=== PATIENT | female | born 1990 | race American Indian/Alaskan Native ===

== ENCOUNTER 2019-02-14 09:48 | Emergency (ER) | payer SELFPAY ==
[2019-02-14 10:29] VITALS: BP 114/63
[2019-02-14 11:38] LABS: Hematocrit 41.8 % (30.3-42.9); Mean Corpuscular HGB Conc 33 % (30-34); Mean Corpuscular Volume 93 fl (79-97); Platelet Count 376 K/mm3 (140-440); Red Blood Count 4.49 M/mm3 (3.65-5.03); Red Cell Distribution Width 14.8 % (13.2-15.2)
[2019-02-14 12:01] LABS: Alanine Aminotransferase 16 units/L (7-56); Albumin 4.4 g/dL (3.9-5); BUN/Creatinine Ratio 8; Blood Urea Nitrogen 9 mg/dL (7-17); Calcium 9.6 mg/dL (8.4-10.2); Hemolysis Index 3
[2019-02-14 13:26] LABS: HCG Qualitative,Urine Negative (Negative)
[2019-02-14 14:14] LABS: Band Neutrophils # (Manual) 1.2 K/mm3; Basophils % (Manual) 0 % (0.0-1.8); Eosinophils % (Manual) 0 % (0.0-4.3); Total Cells Counted 100
[2019-02-14 14:15] LABS: Platelet Estimate Consistent w Auto; RBC Morphology Normal
--- NOTE | 2019-02-14 14:18 | Ultrasound Report ---
ULTRASOUND PELVIS COMPLETE ULTRASOUND TRANSVAGINAL INDICATION / CLINICAL INFORMATION: Left lower quadrant pain, pelvic pain. TECHNIQUE: Transabdominal and Transvaginal. Duplex Color Doppler used: Yes. COMPARISON: None available FINDINGS: UTERUS: Present. - Appearance (if present): No significant abnormality. - Size in cm (if present): 7.4 x 3.6 x 3.5. - Endometrial Complex (if present): No significant abnormality.. Thickness in cm (if measured) = 1.1 - Mass lesions: None. - Additional findings: None. RIGHT ADNEXA: The right ovary measures 5.0 x 2.3 x 3.6 cm. No focal abnormality is detected. Normal c olor Doppler blood flow. LEFT ADNEXA: The left ovary measures 2.8 x 2.1 x 2.5 cm. A 1.7 cm left ovarian cyst is identified. Th ere is also a tubular serpiginous structure in the left adnexa with no internal flow suggestive of mi ld left hydrosalpinx. Thrombosed left ovarian vein could be considered. URINARY BLADDER: The bladder is empty but no obvious abnormality. FREE FLUID: Trace free fluid in the cul-de-sac. ADDITIONAL FINDINGS: None. IMPRESSION: Unremarkable uterus, endometrium and right ovary. 1.7 cm left ovarian cyst. There is also a tubular serpiginous structure in the left adnexa which prob ably represents mild right hydrosalpinx. Thrombosed pelvic vein could be considered. Please correlate with the clinical presentation of the patient. Trace free fluid in the cul-de-sac. Signer Name: Lawson Pop Jr, MD Signed: 02/14/2019 2:13 PM Workstation Name: [id number]
[2019-02-14] MEDS ORDERED: AZITHROMYCIN 250 MG TAB PO ONE (14:41)
[2019-02-14] MEDS ORDERED: LIDOCAINE-MPF (1%) 10 MG/1 ML VIAL 5 ML INFILTRATI ONE (14:41)
--- NOTE | 2019-02-14 14:41 | Emergency Department Report ---
ED Abdominal Pain HPI - General Chief Complaint: Abdominal Pain Stated Complaint: ABD PAIN Time Seen by Provider: 02/14/19 12:11 Source: patient Mode of arrival: Wheelchair Limitations: No Limitations - History of Present Illness Initial Comments: Patient is a 28-year-old [place] female who states that starting approximately 5 PM yesterday she started having some left lower quadrant pain. Patient states the pain is deep in the pelvis on the left. She denies urinary frequency or dysuria or abnormal vaginal bleeding or abnormal vaginal discharge. Patient states is been no nausea vomiting diarrhea. Patient states the pain is 8 out of 10 in severity and it hurts worse with movement. Patient states she's had similar pain in the past that was attributed to a ruptured ovarian cyst. - Related Data Previous Rx's Medication Instructions Recorded Last Taken Type DOXYCYCLINE Hyclate [Vibramycin 100 mg PO Q12HR #20 capsule 02/14/19 Unknown Rx CAP] HYDROcodone/APAP 5-325 [[place] 1 each PO Q6HR PRN #14 tablet 02/14/19 Unknown Rx 5/325] Ibuprofen [Motrin 600 MG tab] 600 mg PO Q8H PRN #20 tablet 02/14/19 Unknown Rx Allergies Allergy/AdvReac Type Severity Reaction Status Date / Time No Known Allergies Allergy Verified 02/14/19 10:24 ED Review of Systems ROS: Stated complaint: ABD PAIN Other details as noted in HPI Comment: All other systems reviewed and negative ED Past Medical Hx - Past Medical History Previous Medical History?: No - Surgical History Past Surgical History?: No - Medications Home Medications: Home Medications Medication Instructions Recorded Confirmed Last Taken Type DOXYCYCLINE Hyclate [Vibramycin 100 mg PO Q12HR #20 capsule 02/14/19 Unknown Rx CAP] HYDROcodone/APAP 5-325 [[place] 1 each PO Q6HR PRN #14 tablet 02/14/19 Unknown Rx 5/325] Ibuprofen [Motrin 600 MG tab] 600 mg PO Q8H PRN #20 tablet 02/14/19 Unknown Rx ED Physical Exam - General Limitations: No Limitations General appearance: alert, in no apparent distress - Head Head exam: Present: atraumatic, normocephalic - Eye Eye exam: Present: normal appearance, PERRL, EOMI - ENT ENT exam: Present: mucous membranes moist - Neck Neck exam: Present: normal inspection - Respiratory Respiratory exam: Present: normal lung sounds bilaterally. Absent: respiratory distress, wheezes, rales, rhonchi - Cardiovascular Cardiovascular Exam: Present: regular rate, normal rhythm, normal heart sounds. Absent: systolic murmur, diastolic murmur, rubs, gallop - GI/Abdominal GI/Abdominal exam: Present: soft, tenderness (LLQ pain with palpation), normal bowel sounds. Absent: distended, guarding, rebound, rigid - Extremities Exam Extremities exam: Present: normal inspection - Back Exam Back exam: Present: normal inspection - Neurological Exam Neurological exam: Present: alert, oriented X3 - Psychiatric Psychiatric exam: Present: normal affect, normal mood - Skin Skin exam: Present: warm, dry, intact, normal color. Absent: rash ED Course Vital Signs 02/14/19 10:26 Temperature 99.1 F Pulse Rate 109 H Respiratory 18 Rate Blood Pressure 114/63 O2 Sat by Pulse 100 Oximetry ED Medical Decision Making - Lab Data Result diagrams: 02/14/19 11:07 02/14/19 11:07 Lab Results 02/14/19 02/14/19 02/14/19 Range/Units 11:07 11:07 12:56 WBC 20.1 H (4.5-11.0) K/mm3 RBC 4.49 (3.65-5.03) M/mm3 Hgb 14.0 (10.1-14.3) gm/dl Hct 41.8 (30.3-42.9) % MCV 93 (79-97) fl MCH 31 (28-32) pg MCHC 33 (30-34) % RDW 14.8 (13.2-15.2) % Plt Count 376 (140-440) K/mm3 Add Manual Diff Complete Total Counted 100 Seg Neutrophils % Credit Relationship Manager Seg Neuts % (Manual) 89.0 H (40.0-70.0) % Band Neutrophils % 6.0 % Lymphocytes % (Manual) 1.0 L (13.4-35.0) % Reactive Lymphs % (Man) 0 % Monocytes % (Manual) 4.0 (0.0-7.3) % Eosinophils % (Manual) 0 (0.0-4.3) % Basophils % (Manual) 0 (0.0-1.8) % Metamyelocytes % 0 % Myelocytes % 0 % Promyelocytes % 0 % Blast Cells % 0 % Nucleated RBC % Not Reportable Seg Neutrophils # Man 17.9 H (1.8-7.7) K/mm3 Band Neutrophils # 1.2 K/mm3 Lymphocytes # (Manual) 0.2 L (1.2-5.4) K/mm3 Abs React Lymphs (Man) 0.0 K/mm3 Monocytes # (Manual) 0.8 (0.0-0.8) K/mm3 Eosinophils # (Manual) 0.0 (0.0-0.4) K/mm3 Basophils # (Manual) 0.0 (0.0-0.1) K/mm3 Metamyelocytes # 0.0 K/mm3 Myelocytes # 0.0 K/mm3 Promyelocytes # 0.0 K/mm3 Blast Cells # 0.0 K/mm3 WBC Morphology Not Reportable Hypersegmented Neuts Not Reportable Hyposegmented Neuts Not Reportable Hypogranular Neuts Not Reportable Smudge Cells Not Reportable Toxic Granulation Not Reportable Toxic Vacuolation Not Reportable Dohle Bodies Not Reportable Pelger-Huet Anomaly Not Reportable Sharon Rods Not Reportable Platelet Estimate Consistent w auto Clumped Platelets Not Reportable Plt Clumps, EDTA Not Reportable Large Platelets Not Reportable Giant Platelets Not Reportable Platelet Satelliting Not Reportable Plt Morphology Comment Not Reportable RBC Morphology Normal Dimorphic RBCs Not Reportable Polychromasia Not Reportable Hypochromasia Not Reportable Poikilocytosis Not Reportable Anisocytosis Not Reportable Microcytosis Not Reportable Macrocytosis Not Reportable Spherocytes Not Reportable Pappenheimer Bodies Not Reportable Sickle Cells Not Reportable Target Cells Not Reportable Tear Drop Cells Not Reportable Ovalocytes Not Reportable Helmet Cells Not Reportable [place] Bodies Not Reportable [place] Rings Not Reportable [place] Cells Not Reportable Bite Cells Not Reportable Crenated Cell Not Reportable Elliptocytes Not Reportable Acanthocytes (Spur) Not Reportable Rouleaux Not Reportable Hemoglobin C Crystals Not Reportable Schistocytes Not Reportable Malaria parasites Not Reportable Roberto Bodies Not Reportable Hem Pathologist Commnt No Sodium 139 (137-145) mmol/L Potassium 4.6 (3.6-5.0) mmol/L Chloride 103.1 (98-107) mmol/L Carbon Dioxide 22 (22-30) mmol/L Anion Gap 19 mmol/L BUN 9 (7-17) mg/dL Creatinine 1.2 (0.7-1.2) mg/dL Estimated GFR > 60 ml/min BUN/Creatinine Ratio 8 % Glucose 130 H (65-100) mg/dL Calcium 9.6 (8.4-10.2) mg/dL Total Bilirubin 0.60 (0.1-1.2) mg/dL AST 13 (5-40) units/L ALT 16 (7-56) units/L Alkaline Phosphatase 82 (35-129) units/L Total Protein 7.7 (6.3-8.2) g/dL Albumin 4.4 (3.9-5) g/dL Albumin/Globulin Ratio 1.3 % Urine HCG, Qual Negative (Negative) - Radiology Data INDICATION / CLINICAL INFORMATION: Left lower quadrant pain, pelvic pain. TECHNIQUE: Transabdominal and Transvaginal. Duplex Color Doppler used: Yes. COMPARISON: None available FINDINGS: UTERUS: Present. - Appearance (if present): No significant abnormality. - Size in cm (if present): 7.4 x 3.6 x 3.5. - Endometrial Complex (if present): No significant abnormality.. Thickness in cm (if measured) = 1.1 - Mass lesions: None. - Additional findings: None. RIGHT ADNEXA: The right ovary measures 5.0 x 2.3 x 3.6 cm. No focal abnormality is detected. Normal color Doppler blood flow. LEFT ADNEXA: The left ovary measures 2.8 x 2.1 x 2.5 cm. A 1.7 cm left ovarian cyst is identified. There is also a tubular serpiginous structure in the left adnexa with no internal flow suggestive of mild left hydrosalpinx. Thrombosed left ovarian vein could be considered. URINARY BLADDER: The bladder is empty but no obvious abnormality. FREE FLUID: Trace free fluid in the cul-de-sac. ADDITIONAL FINDINGS: None. IMPRESSION: Unremarkable uterus, endometrium and right ovary. 1.7 cm left ovarian cyst. There is also a tubular serpiginous structure in the left adnexa which probably represents mild right hydrosalpinx. Thrombosed pelvic vein could be considered. Please correlate with the clinical presentation of the patient. Trace free fluid in the cul-de-sac. Signer Name: Lawson Wray Jr, MD Signed: 02/14/2019 2:13 PM Workstation Name: [id number] Transcribed By: TTR Dictated By: LAWSON WRAY JR, MD Electronically Authenticated By: LAWSON WRAY JR, MD Signed Date/Time: 02/14/19 1413 - Medical Decision Making The patient's elevated white count ultrasound was done. Ultrasound does show she has a left-sided ovarian cyst but also left hydrosalpinx. Because of the tenderness and the elevated white count was that this is source of the patient's infection. 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 Critical care attestation.: If time is entered above; I have spent that time in minutes in the direct care of this critically ill patient, excluding procedure time. ED Disposition Clinical Impression: Pelvic inflammatory disease (PID), Hydrosalpinx, Ovarian cyst Disposition: DC-01 TO HOME OR SELFCARE Is pt being admited?: No Does the pt Need Aspirin: No Condition: Stable Instructions: Pelvic Inflammatory Disease (ED), Ovarian Cyst (ED) Referrals: LAKEISHA MULLINS MD [Staff Physician] - 3-5 Days Time of Disposition: 14:46
[2019-02-14 14:44] LABS: Color,Urine Yellow (Yellow)
[2019-02-14 14:45] LABS: Bilirubin,Urine Negative (Negative); Blood,Urine SM (Negative); Urobilinogen,Urine < 0.2 mg/dL (<2.0)
== END 2019-02-14 14:45 | disposition home or self-care (01) ==
LOC: ED 09:48
DX: N73.9 Female pelvic inflammatory disease, unspecified (principal); N83.202 Unspecified ovarian cyst, left side; N70.11 Chronic salpingitis
CPT/HCPCS: 36415; 76830; 76856; 80053; 81001; 81025; 85007; 85025; 96372; 99284; J0696

== ENCOUNTER 2020-09-02 17:23 | Emergency (ER) | payer SELFPAY | END 2020-09-03 02:39 | LOC: ED 17:23 | DX: R07.89 Other chest pain (principal); R51.9 Headache, unspecified; Z53.21 Procedure and treatment not carried out due to patient leaving prior to being seen by health care provider ==